=== PATIENT | male | born 1965 | race African-American/Black ===

== ENCOUNTER 2019-07-30 10:25 | Emergency (ER) | payer OTHER ==
[~2019-07-30] VITALS: Ht 190.5 cm; Wt 99.8 kg
[2019-07-30] MEDS ORDERED: LISINOPRIL2.5 MG PO (10:58)
[2019-07-30] MEDS ORDERED: AMLODIPINE BESY10 MG PO (10:58)
[2019-07-30] MEDS ORDERED: KETOROLAC TROMETHAMINE 60 MG/2 ML VIAL IM ONE (11:15)
[2019-07-30] MEDS ORDERED: HYDROCODONE/APAP 5MG-325MG TAB PO ONE (11:15)
--- NOTE | 2019-07-30 11:30 | Diagnostic Imaging Report ---
EXAM: KNEE 3VW RT - HOPD INDICATION: Pain COMPARISON: None IMPRESSION: No acute displaced fracture. Mild joint space narrowing and minimal osteophytosis. Patellar subchondral cystic change with minimal quadriceps enthesopathy. Signed by: Sorin Anthony MD on 07/30/2019 11:26 AM
[2019-07-30] MEDS ORDERED: ULTRAM50 MG PO (11:45)
[2019-07-30] MEDS ORDERED: PREDNISONE20 MG PO (11:45)
[2019-07-30 12:19] VITALS: BP 110/72
== END 2019-07-30 12:10 | disposition home or self-care (01) ==
LOC: FSED 10:25
DX: S83.91XA Sprain of unspecified site of right knee, initial encounter (principal); M25.461 Effusion, right knee; M17.11 Unilateral primary osteoarthritis, right knee
CPT/HCPCS: 73562; 96372; 99283; J1885